=== PATIENT | male | born 1960 | race Caucasian/White ===

== ENCOUNTER 2018-09-22 13:15 | Emergency (ER) | payer BC ==
[2018-09-22] MEDS ORDERED: oxyCODONE 5 MG Tab PO ONE (13:51)
--- NOTE | 2018-09-22 14:04 | EDM.PDOC ---
ED HPI GENERAL MEDICAL PROBLEM - General Stated Complaint: BROKEN JAW Time Seen by Provider: 09/22/18 13:20 Source of Information: Reports: Patient History Limitations: Reports: No Limitations - History of Present Illness Onset Date: 09/19/18 Location: Reports: Other (jaw) Improves with: Reports: Medication ED ROS GENERAL - Review of Systems Review Of Systems: See Below Constitutional: Reports: No Symptoms HEENT: Reports: Other (regina jaw pain, fracture, [place] [facility] [place]acial [place] thursday ) Respiratory: Reports: No Symptoms Cardiovascular: Reports: No Symptoms Endocrine: Reports: No Symptoms Musculoskeletal: Reports: Other (fractured jaw laft side ) ED EXAM, GENERAL - Physical Exam Exam: See Below Exam Limited By: No Limitations General Appearance: Alert, WD/WN, Mild Distress Ears: Normal External Exam Nose: Normal Inspection Head: Facial Swelling, Other (swelling and pain to left jaw fracture on ct at [facility] [place] ) Respiratory/Chest: No Respiratory Distress, Lungs Clear, Normal Breath Sounds, No Accessory Muscle Use, Chest Non-Tender Cardiovascular: Normal Peripheral Pulses, Regular Rate, Rhythm, No Edema, No Gallop, No JVD, No Murmur, No Rub Extremities: Normal Inspection, Normal Range of Motion Neurological: Alert, Oriented Skin Exam: Warm, Dry Course - Orders/Labs/Meds Meds: Medications Discontinued Medications Generic Name Dose Route Start Last Admin Trade Name Freq PRN Reason Stop Dose Admin Oxycodone HCl 5 mg 09/22/18 13:51 Oxycodone PO 09/22/18 13:52 ONETIME ONE Departure - Departure Time of Disposition: 14:25 Disposition: Home, Self-Care 01 Condition: Good Clinical Impression: Broken jaw - Discharge Information *PRESCRIPTION DRUG MONITORING PROGRAM REVIEWED*: Not Applicable *COPY OF PRESCRIPTION DRUG MONITORING REPORT IN PATIENT DESHAWN: Not Applicable Instructions: Mandibular Fracture, [id number] Referrals: Man Anderson MD [Primary Care Provider] - Additional Instructions: follow up with maxillofacial next Thursday as directed.
== END 2018-09-22 14:36 | disposition home or self-care (01) ==
LOC: VM.ED 13:15
DX: S02.609A Fracture of mandible, unspecified, initial encounter for closed fracture (principal); Y04.0XXA Assault by unarmed brawl or fight, initial encounter
CPT/HCPCS: 99283; A9270

== ENCOUNTER 2018-11-01 09:56 | Emergency (ER) | payer OTHER, BC ==
[2018-11-01] MEDS ORDERED: Sodium Chloride 0.9% 1,000 ML IV ONE (10:08)
[2018-11-01] MEDS ORDERED: Morphine 2 MG/ML Syringe ONE (10:16)
[2018-11-01] MEDS ORDERED: Ondansetron 4 MG/2 ML SDV ONE (10:16)
[2018-11-01] MEDS ORDERED: Morphine 4 MG/ML Syringe ONE (10:31)
--- NOTE | 2018-11-01 10:37 | CR ---
[id number] RAD/RAD Chest PA or AP 1V EXAM: RAD Chest PA or AP 1V INDICATION: FALL. COMPARISON: None. DISCUSSION: Cardiomediastinal silhouette is normal in size and contour. No infiltrate, effusion, pneumothorax, or edema. IMPRESSION: Negative examination of the chest. Alvaro Eaton MD 11/01/18 1036 Thank you for allowing us to participate in the care of your patient.
--- NOTE | 2018-11-01 10:38 | EDM.PDOC ---
ED HPI GENERAL MEDICAL PROBLEM - General Chief Complaint: Trauma Stated Complaint: TRAMA Time Seen by Provider: 11/01/18 10:00 Source of Information: Reports: Patient, EMS History Limitations: Reports: No Limitations - History of Present Illness INITIAL COMMENTS - FREE TEXT/NARRATIVE: patient states was working on a roof stepping down onto a eight-foot stepladder top step and slipped and fell to the ground unsure of how he landed but was able to crawl approximately 10 foot inside a building to get help. Patient now complaints of right-sided rib pain EMS was called patient was brought on spine board in prone position secondary patient refused to lie supine and a half c-collar placed. Patient denies any loss of consciousness loss of bowel or bladder numbness or tingling loss of sensation or loss of range of motion with extremities at the scene and the same in the ER Duration: Minutes: Location: Reports: Chest Quality: Reports: Burning, Stabbing Severity: Severe Improves with: Reports: Other (position) Worsens with: Reports: Movement Associated Symptoms: Reports: No Other Symptoms - Related Data Allergies Allergy/AdvReac Type Severity Reaction Status Date / Time No Known Allergies Allergy Verified 09/22/18 15:12 Home Meds: Home Meds . [Unable to Verify Home Med List] 09/22/18 [History] Past Medical History Musculoskeletal History: Reports: Other (See Below) Psychiatric History: Reports: Anxiety - Past Surgical History Musculoskeletal Surgical History: Reports: Other (See Below) Other Musculoskeletal Surgeries/Procedures:: femur fx. fx jaw Review of Systems - Review of Systems Review Of Systems: See Below Constitutional: Reports: No Symptoms Eyes: Reports: No Symptoms Ears: Reports: No Symptoms Nose: Reports: No Symptoms Mouth/Throat: Reports: No Symptoms Respiratory: Denies: Shortness of Breath, Wheezing, Pleuritic Chest Pain, Cough , Hemoptysis Cardiovascular: Reports: No Symptoms GI/Abdominal: Reports: No Symptoms. Denies: Abdominal Pain, Nausea, Vomiting Genitourinary: Denies: Incontinence Musculoskeletal: Reports: Other (right rib). Denies: Neck Pain, Shoulder Pain, Arm Pain, Back Pain, Leg Pain Skin: Reports: No Symptoms Neurological: Reports: No Symptoms. Denies: Confusion, Dizziness, Headache, Numbness, Paresthesia, Syncope, Tingling, Weakness Psychiatric: Reports: No Symptoms ED EXAM, GENERAL - Physical Exam Exam: See Below Free Text/Narrative:: PT with a GCS 15 follows all commands and answers all questions appropriately Exam Limited By: No Limitations General Appearance: Alert, WD/WN, No Apparent Distress, Other (patient is alert and oriented 4 normal conversation follows all commands and moves all extremities cranial nerves II through XII are intact) Eye Exam: Bilateral Eye: EOMI, PERRL Ears: Normal External Exam, Normal Canal, Hearing Grossly Normal, Normal TMs Ear Exam: Bilateral Ear: TM normal Nose: Normal Inspection, Normal Mucosa, No Blood Throat/Mouth: Normal Inspection, Normal Lips, Normal Teeth, Normal Gums, Normal Oropharynx, Normal Voice, No Airway Compromise Head: Atraumatic, Normocephalic, Other (0.5 cm x 3 mm superficial laceration to the right lateral superior orbital area tenderness to palpation over the sinus maxillary or ethmoid) Neck: Normal Inspection, Supple, Non-Tender, Full Range of Motion, Other ( patient has no midline tenderness to palpation no step off noted cleared via Nexus criteria patient was not collared upon arrival to the ER had full range of motion) Respiratory/Chest: No Respiratory Distress, Lungs Clear, Normal Breath Sounds, No Accessory Muscle Use. No: Chest Non-Tender, Respiratory Distress, Decreased Breath Sounds, Crackles, Rhonchi, Accessory Muscle Use, Retractions, Splinting Cardiovascular: Normal Peripheral Pulses, Regular Rate, Rhythm, No Edema, No Gallop. No: No JVD, JVD, Bradycardia, Tachycardia GI/Abdominal: Normal Bowel Sounds, Soft, Non-Tender, No Organomegaly, No Distention, Pelvis Stable. No: Guarding, Rigid, Rebound, Tender Back Exam: Normal Inspection, Full Range of Motion, Other (also noted no tenderness to palpation). No: Paraspinal Tenderness, Vertebral Tenderness Extremities: Normal Inspection, Normal Range of Motion, Non-Tender, No Pedal Edema, Normal Capillary Refill. No: Slow Capillary Refill Neurological: Alert, Oriented, CN II-XII Intact, Normal Cognition, Normal Reflexes, No Motor/Sensory Deficits Psychiatric: Normal Affect Skin Exam: Warm, Dry, Intact, Normal Color, No Rash Course - Vital Signs Text/Narrative:: x-ray was shot PA secondary to patient's condition upon arrival to the ER xray post lat right rib fx 8-9-10 non displaced called [facility] [address] Coleman will accept transfer of pt right lateral laceration was irrigated with normal saline Betadine Hibiclens was closed with Dermabond well approximation - Orders/Labs/Meds Labs: Laboratory Tests 11/01/18 Range/Units 10:05 Ethyl Alcohol < 3 (0-3) mg/dL Meds: Medications Discontinued Medications Generic Name Dose Route Start Last Admin Trade Name Ilir PRN Reason Stop Dose Admin Morphine Sulfate Confirm 11/01/18 10:16 Morphine Administered 11/01/18 10:17 Dose 2 mg .ROUTE .STK-MED ONE Morphine Sulfate Confirm 11/01/18 10:31 Morphine Administered 11/01/18 10:32 Dose 4 mg .ROUTE .STK-MED ONE Ondansetron HCl Confirm 11/01/18 10:16 Zofran Administered 11/01/18 10:17 Dose 4 mg .ROUTE .STK-MED ONE Departure - Departure Time of Disposition: 10:50 Disposition: DC/Tfer to Acute Hospital 02 Condition: Good Clinical Impression: Ribs, multiple fractures, Trauma of chest, Laceration of face - Discharge Information *PRESCRIPTION DRUG MONITORING PROGRAM REVIEWED*: No *COPY OF PRESCRIPTION DRUG MONITORING REPORT IN PATIENT DESHAWN: No Forms: Interfacility Transfer EMTALA, ED Department Discharge - Problem List & Annotations (1) Ribs, multiple fractures SNOMED Code(s): 1000910 Code(s): S22.49XA - MULTIPLE FRACTURES OF RIBS, UNSP SIDE, INIT FOR CLOS FX Status: Acute Current Visit: No (2) Trauma of chest SNOMED Code(s): 292945772, 04846792, 103666619 Code(s): S29.9XXA - UNSPECIFIED INJURY OF THORAX, INITIAL ENCOUNTER Status : Acute Current Visit: No
== END 2018-11-01 11:31 | disposition short-term general hospital (02) ==
LOC: VM.ED 09:56
DX: S22.41XA Multiple fractures of ribs, right side, initial encounter for closed fracture (principal); S01.81XA Laceration without foreign body of other part of head, initial encounter; W11.XXXA Fall on and from ladder, initial encounter
CPT/HCPCS: 12011; 71045; 80320; 96361; 96374; 96375; 99291; 99292; J2270; J2405; J7030; 93005; G0480

== ENCOUNTER 2018-11-27 16:33 | Emergency (ER) | payer BC, OTHER ==
[2018-11-27] MEDS ORDERED: Tetracaine HCl/PF 0.5% 4 ML Bottle EYEBOTH ONE (16:56)
--- NOTE | 2018-11-27 17:11 | EDM.PDOC ---
ED HPI GENERAL MEDICAL PROBLEM - General Chief Complaint: ENT Problem Stated Complaint: CONTACT REMOVAL Time Seen by Provider: 11/27/18 17:01 - History of Present Illness INITIAL COMMENTS - FREE TEXT/NARRATIVE: PT presents with contacts in eyes has not been able to remove for the last two weeks. Location: Reports: Other (eyes) Quality: Reports: Burning Severity: Moderate right eye and ribs Pain Score (Numeric/FACES): 8 - Related Data Allergies Allergy/AdvReac Type Severity Reaction Status Date / Time zolpidem AdvReac Hallucinati Verified 11/27/18 16:50 ons Home Meds: Home Meds Divalproex Sodium 1,500 mg PO BEDTIME 11/27/18 [History] Ibuprofen 800 mg PO Q8H PRN 11/27/18 [History] diazePAM [Valium] 5 - 10 mg PO DAILY PRN 11/27/18 [History] tiZANidine [Zanaflex] 4 mg PO Q8H PRN 11/27/18 [History] Past Medical History Musculoskeletal History: Reports: Other (See Below) Psychiatric History: Reports: Anxiety - Past Surgical History Musculoskeletal Surgical History: Reports: Other (See Below) Other Musculoskeletal Surgeries/Procedures:: femur fx. fx jaw Social & Family History - Tobacco Use Smoking Status *Q: Current Every Day Smoker Years of Tobacco use: 30 Packs/Tins Daily: 0.5 - Alcohol Use Days Per Week of Alcohol Use: 1 Number of Drinks Per Day: 1 Total Drinks Per Week: 1 - Recreational Drug Use Recreational Drug Use: No ED ROS GENERAL - Review of Systems Review Of Systems: See Below Constitutional: Reports: No Symptoms HEENT: Reports: Contact Lenses Respiratory: Reports: No Symptoms Cardiovascular: Reports: No Symptoms Endocrine: Reports: No Symptoms GI/Abdominal: Reports: No Symptoms : Reports: No Symptoms Musculoskeletal: Reports: No Symptoms Skin: Reports: No Symptoms Neurological: Reports: No Symptoms Psychiatric: Reports: No Symptoms Hematologic/Lymphatic: Reports: No Symptoms Immunologic: Reports: No Symptoms ED EXAM GENERAL W FULL EYE - Physical Exam Exam: See Below Text/Narrative:: 1 drop tetracaine into each eyes. Contacts removed w/o complication Exam Limited By: No Limitations General Appearance: Alert, WD/WN, No Apparent Distress Conjunctiva & Sclera: Bilateral: Injected Ears: Normal External Exam Nose: Normal Inspection Throat/Mouth: Normal Inspection Head: Atraumatic, Normocephalic Neck: Normal Inspection Respiratory/Chest: No Respiratory Distress Cardiovascular: Normal Peripheral Pulses Course - Vital Signs Last Recorded V/S: Last Vital Signs Temp 37.0 C 11/27/18 16:47 Pulse 93 11/27/18 16:47 Resp 16 11/27/18 16:47 BP 142/82 H 11/27/18 16:47 Pulse Ox 96 11/27/18 16:47 - Orders/Labs/Meds Meds: Medications Discontinued Medications Generic Name Dose Route Start Last Admin Trade Name Freq PRN Reason Stop Dose Admin Tetracaine HCl 1 ml 11/27/18 16:56 Tetracaine 0.5% Steri-Unit Charo EYEBOTH 11/27/18 16:57 ONETIME ONE Departure - Departure Time of Disposition: 17:14 Disposition: Home, Self-Care 01 Condition: Good Clinical Impression: Eye irritation, Contact lens stuck - Discharge Information Instructions: Blepharitis Referrals: PCP,None [Primary Care Provider] -
== END 2018-11-27 17:20 | disposition home or self-care (01) ==
LOC: VM.ED 16:33
DX: T15.92XA Foreign body on external eye, part unspecified, left eye, initial encounter (principal); T15.91XA Foreign body on external eye, part unspecified, right eye, initial encounter; F41.9 Anxiety disorder, unspecified; F17.210 Nicotine dependence, cigarettes, uncomplicated; Z88.8 Allergy status to other drugs, medicaments and biological substances; Z79.899 Other long term (current) drug therapy; X58.XXXA Exposure to other specified factors, initial encounter
CPT/HCPCS: 65220; 99283